=== PATIENT | female | born 1960 | race Caucasian/White ===

== ENCOUNTER → 2018-01-13 | Outpatient (CLI) | payer BC ==
[~2018-01-13] MED LIST: ALEVE PM CAPLE1 EACH PO; AMOCLA875 PO; CELE200 PO; CLOT10 SS; FLONASE ALLERG9.9 ML; Flagyl500 MG PO; LEVFLO500 PO; META800 PO; METF500 PO; METR500 PO; OMEG1CAP30; OMEP40CA12; OMEPRAZOLE MAGN20 MG PO; POTCIT5; Percocet 5-3251 EACH PO; STOOL SOFTENER; UBID10 PO; Zofran Odt8 MG SL
== END | disposition home or self-care (01) ==
LOC: LAB EV 10:26 → LAB SHORT 10:26
DX: F17.200 Nicotine dependence, unspecified, uncomplicated (principal)
CPT/HCPCS: 87070

== ENCOUNTER 2021-09-06 08:24 | Day surgery (SDC) | payer BC ==
[~2021-09-06] VITALS: Ht 157.5 cm; Wt 80.9 kg
[2021-09-06] MEDS ORDERED: ALEVE220 MG PO (09:26)
[2021-09-06] MEDS ORDERED: METAXALONE800 M1 PO (09:28)
[2021-09-06] MEDS ORDERED: ATOR10 PO (09:28)
[2021-09-06] MEDS ORDERED: ZOLOFT25 MG PO (09:29)
--- NOTE | 2021-09-06 09:38 | NUR ---
09/06/21 0938 Rowena Castro PT INTERNAL COVID TEST IS NEGATIVE
== END 2021-09-06 13:09 | disposition home or self-care (01) ==
LOC: ORSCSDS 08:24
PROVIDERS: Orthopaedic Surgery
PROC: 0LX80ZZ Transfer Left Hand Tendon, Open Approach (ICD-10-PCS; principal; 2021-09-06 10:00)
PROC: 0RQT0ZZ Repair Left Carpometacarpal Joint, Open Approach (ICD-10-PCS; principal; 2021-09-06 10:00)
DX: M18.12 Unilateral primary osteoarthritis of first carpometacarpal joint, left hand (principal); E78.5 Hyperlipidemia, unspecified; K21.9 Gastro-esophageal reflux disease without esophagitis; E11.9 Type 2 diabetes mellitus without complications; F17.210 Nicotine dependence, cigarettes, uncomplicated; M79.7 Fibromyalgia; Z79.84 Long term (current) use of oral hypoglycemic drugs; Z79.899 Other long term (current) drug therapy
CPT/HCPCS: 82947; 87426; A9270; C1713; C9803; J0690; J1100; J2250; J2405; J2704; J2795; J3010; J7120

== ENCOUNTER → 2022-07-03 | Outpatient (CLI) | payer BC ==
[~2022-07-03] MED LIST changes: +ALEVE220 MG PO; +ATOR10 PO; +METAXALONE800 M1 PO; +ZOLOFT25 MG PO
== END ==
LOC: LAB 08:10 → LAB SHORT 08:10 → PLD 08:10
DX: L60.2 Onychogryphosis (principal); B35.1 Tinea unguium
CPT/HCPCS: 88305; 88312

== ENCOUNTER 2024-02-27 10:42 | Emergency (ER) | payer BC ==
[~2024-02-27] VITALS: Ht 157.5 cm; Wt 76.2 kg
[2024-02-27 11:36] LABS: BASOPHILS ABSOLUTE AUTO 0.07 K/mm3 (0.00-0.23); BASOPHILS PERCENT AUTO 1 % (0-2); EOSINOPHILS ABSOLUTE AUTO 0.16 K/mm3 (0.00-0.68); EOSINOPHILS PERCENT AUTO 2 % (0-6); Hematocrit 45.7 % (33.0-51.0); Hemoglobin 15.4 g/dL (11.5-16.0); IMMATURE GRAN ABSOLUTE AUTO 0.04 K/mm3 (0.00-0.10); IMMATURE GRAN PERCENT AUTO 0 % (0-1); LYMPHOCYTES ABSOLUTE AUTO 3.58 K/mm3 (0.84-5.20); LYMPHOCYTES PERCENT AUTO 39 % (21-46); MONOCYTES ABSOLUTE AUTO 0.66 K/mm3 (0.16-1.47); MONOCYTES PERCENT AUTO 7 % (4-13); Mean Corpuscular HGB 30.8 pg (26.0-34.0); Mean Corpuscular HGB Conc 33.7 g/dL (31.5-36.5); Mean Corpuscular Volume 91 fL (80-100); Mean Platelet Volume 9.9 fL (9.1-12.4); NEUTROPHILS ABSOLUTE AUTO 4.69 K/mm3 (1.96-9.15); NEUTROPHILS PERCENT AUTO 51 % (41-73); Platelet Count 286 K/mm3 (150-400); RDW Coefficient Variation 14.3 % (11.7-14.2); RDW Standard Deviation 48.1 fL (35.1-46.3)
[2024-02-27 11:57] LABS: Albumin, Blood 3.8 g/dL (3.4-5.0); Albumin/Globulin Ratio 1.1 (0.8-1.8); Bilirubin, Total 0.5 mg/dL (0.1-1.0); Calcium, Blood 9.2 mg/dL (8.5-10.1); Creatinine, Blood 0.58 mg/dL (0.40-1.00); Globulin, Blood 3.4 g/dL (2.2-4.0); Potassium, Blood 3.7 mmol/L (3.5-5.5); Total Protein, Blood 7.2 g/dL (6.4-8.2)
[2024-02-27] MEDS ORDERED: Ketorolac Tromethamine 30mg Vial IV ONE (13:30)
[2024-02-27 13:31] LABS: Source, Urine Clean Catch
[2024-02-27 14:24] VITALS: BP 136/89
[2024-02-27 14:28] LABS: Bilirubin, Urine Neg (Neg); Blood, Urine Neg (Neg); Color, Urine Yellow (P-Yellow); Glucose Qualitative, Urine 4+ (Neg); Ketones, Urine Neg (Neg); Leukocyte Esterase, Urine 1+ (Neg); Nitrite, Urine Neg (Neg); Protein, Urine Neg (Neg); Urobilinogen, Urine NORM (Normal)
[2024-02-27 15:07] LABS: Appearance, Urine Hazy (Clear)
[2024-02-27 15:08] LABS: Bacteria Mod /hpf; Mucus Light (0-Heavy); Red Blood Cells, Urine 0-2 /hpf (0-2); Squamous Epithelial Cells Rare /hpf (Few); Transitional Epithelial Cells Rare /hpf (0-Rare)
== END 2024-02-27 15:10 | disposition left against medical advice (07) ==
LOC: ER 10:42
PROVIDERS: Physician Assistant
DX: R10.11 Right upper quadrant pain (principal); Z53.29 Procedure and treatment not carried out because of patient's decision for other reasons; K21.9 Gastro-esophageal reflux disease without esophagitis; E11.9 Type 2 diabetes mellitus without complications; F17.210 Nicotine dependence, cigarettes, uncomplicated; Z88.5 Allergy status to narcotic agent; Z88.8 Allergy status to other drugs, medicaments and biological substances; Z79.899 Other long term (current) drug therapy; Z79.84 Long term (current) use of oral hypoglycemic drugs
CPT/HCPCS: 76705; 80053; 81001; 83690; 85025; 87086; 96374; 99283-25; J1885

== ENCOUNTER → 2024-03-25 | Outpatient (CLI) | payer BC ==
[2024-03-25 13:25] LABS: Source, Urine Voided
[2024-03-25 15:26] LABS: Bacteria Rare /hpf; Red Blood Cells, Urine Not Seen /hpf (0-2); Squamous Epithelial Cells Rare /hpf (Few); White Blood Cells, Urine 0-2 /hpf (0-5)
== END ==
LOC: LAB 13:22 → LAB SHORT 13:22
PROVIDERS: Family Medicine
DX: R10.9 Unspecified abdominal pain (principal)
CPT/HCPCS: 81015; 87086

== ENCOUNTER 2024-04-28 01:24 | Observation (INO) | payer BC ==
[~2024-04-28] VITALS: Ht 157.5 cm; Wt 78.0 kg
[2024-04-28] VITALS (17 sets, daily range): BP systolic 96–133; BP diastolic 60–86
[2024-04-28] MEDS ORDERED: Ondansetron HCl 2 MG / ML 2ML Vial ONE ×2 (01:33→02:34)
[2024-04-28] MEDS ORDERED: Ondansetron HCl 2 MG / ML 2ML Vial IV ONE ×2 (01:35→02:25)
[2024-04-28 01:40] LABS: Calcium, Ionized (POC) 1.07 mmol/L (1.10-1.46); Chloride (POC) 108 mmol/L (98-108); Creatinine (POC) 0.7 mg/dL (0.6-1.0); Glucose (ISTAT POC) 167 mg/dL (70-99); Hemoglobin (POC) 14.6 g/dL (12.0-16.0); Potassium (POC) 3.7 mmol/L (3.5-5.5); Sodium (POC) 137 mmol/L (135-148); Total CO2 (POC) 18 mmol/L (21-32)
[2024-04-28] MEDS ORDERED: LOSARTAN POTASS25 M2 PO (01:41)
[2024-04-28] MEDS ORDERED: Bisoprolol Fumar5 MG PO (01:41)
[2024-04-28] MEDS ORDERED: NS 1,000 ML IV ONE (01:42)
[2024-04-28] MEDS ORDERED: ASPI81CH PO (01:42)
[2024-04-28] MEDS ORDERED: Verapamil HCL 2.5 MG/ML 2ML Injection ONE (01:45)
[2024-04-28] MEDS ORDERED: Heparin Sodium 1000 Units/ML 10ML MDV ONE ×2 (01:45→01:49)
[2024-04-28] MEDS ORDERED: NS 250 ML IV ONE (01:45)
[2024-04-28] MEDS ORDERED: NS 2,000 ML IV ONE (01:45)
[2024-04-28] MEDS ORDERED: Nitroglycerin 2 MG/20 ML BTL ONE (01:45)
[2024-04-28] MEDS ORDERED: FentaNYL Citrate 50 MCG/ML 2 ML Injection ONE (01:49)
[2024-04-28] MEDS ORDERED: Midazolam HCl 1MG / ML 2ML Vial ONE (01:49)
[2024-04-28] MEDS ORDERED: Atropine Sulfate 0.1 MG/ML 10ML SYR ONE (01:50)
[2024-04-28] MEDS ORDERED: NS 1,000 ML IV SCH ×2 (01:50→03:00)
[2024-04-28] MEDS ORDERED: NiCARdipine HCL 1,000 MCG/5 ML SYR ONE (01:51)
[2024-04-28 01:58] LABS: International Normalized Ratio 0.96; Prothrombin Time Results 10.3 Sec (9.7-11.5)
[2024-04-28 02:03] LABS: BASOPHILS ABSOLUTE AUTO 0.12 K/mm3 (0.00-0.23); BASOPHILS PERCENT AUTO 1 % (0-2); EOSINOPHILS ABSOLUTE AUTO 0.38 K/mm3 (0.00-0.68); EOSINOPHILS PERCENT AUTO 2 % (0-6); Hematocrit 43.9 % (33.0-51.0); Hemoglobin 14.4 g/dL (11.5-16.0); Mean Corpuscular HGB 30.5 pg (26.0-34.0); Mean Corpuscular HGB Conc 32.8 g/dL (31.5-36.5); Mean Corpuscular Volume 93 fL (80-100); Mean Platelet Volume 9.8 fL (9.1-12.4); Platelet Count 329 K/mm3 (150-400); RDW Coefficient Variation 14.7 % (11.7-14.2); RDW Standard Deviation 50.9 fL (35.1-46.3); Red Blood Cell Count 4.72 M/mm3 (3.80-5.20); White Blood Cell Count 16.77 K/mm3 (4.00-11.30)
[2024-04-28 02:05] LABS: Albumin, Blood 3.4 g/dL (3.4-5.0); Albumin/Globulin Ratio 0.9 (0.8-1.8); Bilirubin, Total 0.4 mg/dL (0.1-1.0); Bun/Creatinine Ratio 17.7 (12.0-20.0); Calcium, Blood 8.5 mg/dL (8.5-10.1); Creatinine, Blood 0.62 mg/dL (0.40-1.00); Globulin, Blood 3.6 g/dL (2.2-4.0)
[2024-04-28] MEDS ORDERED: Nitroglycerin 0.4 MG SUBL SL PRN (02:05)
[2024-04-28 02:07] LABS: IMMATURE GRAN ABSOLUTE AUTO 0.14 K/mm3 (0.00-0.10); IMMATURE GRAN PERCENT AUTO 1 % (0-1); LYMPHOCYTES ABSOLUTE AUTO 8.13 K/mm3 (0.84-5.20); LYMPHOCYTES PERCENT AUTO 49 % (21-46); MONOCYTES ABSOLUTE AUTO 1.23 K/mm3 (0.16-1.47); MONOCYTES PERCENT AUTO 7 % (4-13); NEUTROPHILS ABSOLUTE AUTO 6.77 K/mm3 (1.96-9.15); NEUTROPHILS PERCENT AUTO 40 % (41-73)
[2024-04-28] MEDS ORDERED: Ondansetron HCl 2 MG / ML 2ML Vial IV PRN (03:00)
[2024-04-28] MEDS ORDERED: Acetaminophen 325 MG TABLET PO PRN (03:00)
[2024-04-28] MEDS ORDERED: METF500 PO (03:19)
--- NOTE | 2024-04-28 05:00 | NUR ---
ARRIVAL TO ICU: RECEIVED REPORT FROM BARB RN AT 0223. PT ARRIVED TO ICU BED 08 VIA BED FROM HEALTHCARE INSURANCE SALES AGENT AT 0250. PT ALERT AND ORIENTED X4. ANSWERS QUESTIONS AND FOLLOWS COMMANDS. PT ON 2L NC UPON ARRIVAL WITH SPO2 >90%. TRIALED PT WITHOUT OXYGEN AND SHE DESATTED TO 84%. DENIES SOB. LUNGS CLEAR IN UPPER LOBES AND DIM IN THE BASES. 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 SBP 120'S. DENIES CHEST PAIN OR PRESSURE UPON ARRIVAL. TR BAND TO RIGHT RADIAL, NO SIGNS OF HEMATOMA OR BLEEDING NOTED. ARMBOARD IN PLACE. PT HAS GOOD PULSES NOTED WITH GOOD SPO2 WAVEFORM. PT AFEBRILE. PIV TO RAC AND LW, INTACT AND PATENT. NS AT 125 ML/HR. TOLERATING ICE CHIPS. PUPILS EQUAL AND REACTIVE. PT AT THE BEDSIDE, UPDATED TO PLAN OF CARE. PT HAS NOT YET VOIDED OR HAD A BM SINCE ARRIVAL TO ICU. BED LOW AND LOCKED, CALL LIGHT IN REACH.
[2024-04-28 05:01] LABS: Hematocrit 40.8 % (33.0-51.0); Hemoglobin 13.5 g/dL (11.5-16.0); Mean Corpuscular HGB 30.5 pg (26.0-34.0); Mean Corpuscular HGB Conc 33.1 g/dL (31.5-36.5); Mean Corpuscular Volume 92 fL (80-100); Mean Platelet Volume 9.8 fL (9.1-12.4); Platelet Count 265 K/mm3 (150-400); RDW Coefficient Variation 14.7 % (11.7-14.2); RDW Standard Deviation 50.4 fL (35.1-46.3); Red Blood Cell Count 4.43 M/mm3 (3.80-5.20); White Blood Cell Count 16.22 K/mm3 (4.00-11.30)
[2024-04-28 05:23] LABS: Anion Gap 14 mmol/L (3-11); Blood Urea Nitrogen 10 mg/dL (8-24); Bun/Creatinine Ratio 15.6 (12.0-20.0); CHOL/HDL RATIO 7.9; CO2, Blood 20 mmol/L (21-32); Calcium, Blood 8.3 mg/dL (8.5-10.1); Chloride, Blood 111 mmol/L (98-108); Cholesterol 275 mg/dL (50-200); Creatinine, Blood 0.64 mg/dL (0.40-1.00); Glomerular Filtration Rate 99 (60-); Glucose, Blood 187 mg/dL (70-99); HDL Cholesterol 35 mg/dL (>39); LDL/HDL RATIO 5.5; Low Density Lipoprotein Chol 193 mg/dL (0-110); Potassium, Blood 3.8 mmol/L (3.5-5.5); Sodium, Blood 141 mmol/L (136-145); Triglycerides 237 mg/dL (30-160); Very Low Density Lipoprot Chol 47 mg/dL (6-32)
--- NOTE | 2024-04-28 06:59 | NUR ---
UPDATE: TR BAND DEFLATED AT 0640. NO NEW SIGNS OF HEMATOMA, PAIN OR BLEEDING NOTED. TR BAND STILL IN PLACE, ARMBOARD IN PLACE. STRONG RADIAL PULSE NOTED, CAP REFILL LESS THAN 3 SECONDS AND PT HAS GOOD SENSATION IN FINGERS.
[2024-04-28] MEDS ORDERED: Insulin Human Lispro 100 Units/ML 3ML Syringe SC SCH (07:30)
[2024-04-28] MEDS ORDERED: MetFORMIN HCl 500 mg PO SCH (08:00)
[2024-04-28] MEDS ORDERED: Heparin Sodium,Porcine 5,000 UNIT/0.5 ML SDV SC SCH (09:00)
[2024-04-28] MEDS ORDERED: Ezetimibe 10 MG Tab PO SCH (09:00)
[2024-04-28] MEDS ORDERED: Ticagrelor 90 MG TABLET PO SCH (09:00)
[2024-04-28] MEDS ORDERED: Aspirin 81 MG TabEC PO SCH (09:00)
[2024-04-28] MEDS ORDERED: Varenicline Tartrate 1 MG Tablet PO SCH (09:00)
[2024-04-28] MEDS ORDERED: Losartan Potassium 25 MG Tab PO SCH ×2 (09:00→21:00)
[2024-04-28] MEDS ORDERED: Metoprolol Succinate 50 MG TABCR PO SCH (09:00)
[2024-04-28] MEDS ORDERED: Heparin Sodium,Porcine 5,000 UNIT/0.5 ML SDV SC ONE (10:03)
[2024-04-28] MEDS ORDERED: Ticagrelor 90 MG TABLET PO ONE (10:03)
--- NOTE | 2024-04-28 17:59 | NUR ---
DAY SHIFT SUMMARY PT HAS BEEN ALERT AND ORIENTED THIS SHIFT COMMUNICATING APPROPRIATELY W STAFF. PT HAS DENIED ANY CP OR PRESSURE THIS SHIFT BUT DID REPORT SOME MILD REFLUX THIS AFTERNOON WHICH SHE STATED IS NOT NEW TO HER SHE HAS A HIATAL HERNIA W FREQUENT ACID REFLUX. PT'S MONITOR SHOWING SR 60'S-70'S W OCCASIONAL PVC. BP WNL AND STABLE. PT'S SPO2 >92% ON RM AIR. PT MADE PCU STATUS THIS SHIFT AND GIVEN PORTABLE TECHNICIAN PLANT AND MAINTENANCE SO SHE CAN AMBULATE IN THE RM. PT TOLERATING PO INTAKE WELL. PT'S R RADIAL SITE HAS HAD NO BLEEDING, SWELLING OR PAIN THIS SHIFT. IMMOBILIZER IN PLACE. WILL REPORT TO ONCOMING RN.
--- NOTE | 2024-04-28 20:24 | NUR ---
Assumed care of pt at 1900. Pt resting on bed playing on her phone. AOX4. Pleasant and cooperative w/ care. PT radial site is dressed w/ tegaderm- clean, dry, intact w/ no oozing or hematoma. PT denies cp or sob. Pt on ra, o2 sats are 94%. Lungs clear. Pt on tele, nsr rate of 70s observed. BP stable. Pt had 5 beat run of vtach that was not sustained, strip saved to chart. Pt using restroom in room independently. Pt ate small amount of her dinner. Call light w/ in reach. Plan of care ongoing.
[2024-04-29] VITALS: BP 119/60
--- NOTE | 2024-04-29 01:23 | NUR ---
TRANSFER SUMMARY PT TO PCU ROOM 2, AMBULATED W/ THIS RN WITH STEADY GAIT. BEDSIDE REPORT GIVEN TO ELVA SIMS.
[2024-04-29 01:24] VITALS: BP 136/74
--- NOTE | 2024-04-29 01:30 | NUR ---
ARRIVAL TO PCU NOTE PT WALKED WITH SOFTWARE PROGRAMMER TAJ BLAIR INDEPENDENTLY FROM ICU TO PCU 2 AT 0117. ARRIVED A/Ox4 AND COOPERATIVE WITH CARE. ANSWERS QUESTIONS APPROPRIATLEY AND ABLE TO MAKE HER NEEDS KNOWN. DENIES CP, PRESSURE OR DIZZINESS. SBP STABLE RANGING 130'S. MAINTAINTING SPO2 >94% ON RA. DENIES SOB OR DYSPNEA. BS PRESENT IN ALL QUADRANTS WITH NO REPORTS OF NAUSEA OR ABD PAIN. RIGHT RADIAL ACCESS SITE FROM ANGIO ON 04/28 WNL. DENIES ANY SITE TENDERNESS, HAND TINGLING, OR SENSATION LOSS. RADIAL PULSE PRESENT AND HAND WARM TO THE TOUCH WITH GOOD CAP. REFILL. 1xPIV IN LFA THAT FLUSHES WELL. REVIEWED SOFTWARE PROGRAMMER SHIFT ASSESSMENT AND AGREE WITH THEIR FINDINGS. RAH CEBALLOS AT THIS TIME.
[2024-04-29 03:38] LABS: Hematocrit 40.7 % (33.0-51.0); Hemoglobin 13.5 g/dL (11.5-16.0); Mean Corpuscular HGB 30.5 pg (26.0-34.0); Mean Corpuscular HGB Conc 33.2 g/dL (31.5-36.5); Mean Corpuscular Volume 92 fL (80-100); Platelet Count 272 K/mm3 (150-400); RDW Coefficient Variation 14.6 % (11.7-14.2); RDW Standard Deviation 49.6 fL (35.1-46.3); Red Blood Cell Count 4.42 M/mm3 (3.80-5.20)
[2024-04-29 03:58] LABS: Bun/Creatinine Ratio 12.6 (12.0-20.0); Creatinine, Blood 0.64 mg/dL (0.40-1.00)
[2024-04-29 04:00] VITALS: BP 117/72
[2024-04-29] MEDS ORDERED: Pantoprazole Sodium 20 MG Tab PO SCH (06:00)
--- NOTE | 2024-04-29 06:07 | NUR ---
SHIFT SUMMARY PT ARRIVED TO PCU 0117, PT AMBULATED FROM ICU TO PCU. VSS; SBP 1 TEENS, HRR SINUS IN 70'S, AFEBRILE, SPO2 WNL ON RA. NO ACUTE EVENTS DURING THE SHIFT. PT AMBULATING TO RESTROOM INDEPENDENTLY. R RADIAL SITE WNL, FULLY RECOVERED WITH ARMBOARD IN PLACE. NO CHANGES TO SITE. THIS RN REVIEWED PREVIOUS RN'S ASSESSMENT AND NO CHANGES TO ASSESSMENT. PT RESTED WELL. EXPRESSES DESIRE TO "GET HOME" AND BACK TO HER LIFE AND FAMILY. CALL LIGHT IN REACH, ABLE TO MAKE NEEDS KNOWN.
[2024-04-29 07:09] VITALS: BP 109/59
[2024-04-29] MEDS ORDERED: METO100ER PO (08:14)
[2024-04-29] MEDS ORDERED: BRILINTA90 M1 PO (08:15)
[2024-04-29] MEDS ORDERED: EZET10 PO (08:15)
[2024-04-29] MEDS ORDERED: PANT20 PO (08:15)
--- NOTE | 2024-04-29 09:53 | NUR ---
AM NOTE/DISCHARGE: PATIENT ALERT AND ORIENTED, DENIES NUMBNESS/TINGLING. UP IND IN ROOM. ON ROOM AIR, LUNGS SOUNDING CLEAR. TELE SHOWING SR WITH HR 60'S. DENIES CHEST PAIN/PRESSURE/PALPITATIONS. PPP. RIGHT RADIAL SITE WNL. SITE C/D/I. ARM BOARD IN PLACE. THIS RN REVIEWED RIGHT RADIAL EDUCATION AND PRECAUTIONS. UP IND USING BATHROOM. DENIES ABDOMINAL PAIN/NAUSEA. BOWEL TONES PRESENT IN ALL 4 QUADRANTS. DISCHARGE INSTRUCTIONS REVIEWED BY THIS RN: MEDICATIONS TO STOP, NEW MEDICATIONS, FOLLOW UP APPOINTMENTS, RADIAL PRECAUTIONS AND SIGNS AND SYMPTOMS OF WHEN TO RETURN. IV REMOVED WNL. IN TO PICK PATIENT UP. PATIENT LEFT UNIT WITH ALL PERSONAL BELONGINGS.
== END 2024-04-29 09:49 | disposition home or self-care (01) ==
LOC: ER 01:24 → ICUE 01:25 → ER 01:30 → ICUE 01:30 → PCU 04-29 01:16
PROVIDERS: Student in an Organized Health Care Education/Training Program; ADMIT Internal Medicine Cardiovascular Disease
DX: I21.19 ST elevation (STEMI) myocardial infarction involving other coronary artery of inferior wall (principal); I10 Essential (primary) hypertension; K21.9 Gastro-esophageal reflux disease without esophagitis; E78.5 Hyperlipidemia, unspecified; E11.9 Type 2 diabetes mellitus without complications; F17.210 Nicotine dependence, cigarettes, uncomplicated; Z79.899 Other long term (current) drug therapy; Z88.5 Allergy status to narcotic agent; Z88.8 Allergy status to other drugs, medicaments and biological substances
CPT/HCPCS: 36415; 71045; 76937; 80047; 80048; 80053; 80061; 82947; 83036; 84484; 85014; 85025; 85027; 85347; 85610; 92941; 93005; 93010; 93306; 93454; 96374; 99152; 99153; 99285-25; A9270; C1725; C1769; C1874; C1887; C1894; C9600; J0461; J1644; J2250; J2405; J2470; J3010; J7030; J7050; Q9967

== ENCOUNTER → 2024-12-01 | Outpatient (CLI) | payer BC ==
[~2024-12-01] MED LIST changes: +ASPI81CH PO; +BRILINTA90 M1 PO; +Bisoprolol Fumar5 MG PO; +EZET10 PO; +LOSARTAN POTASS25 M2 PO; +METO100ER PO; +PANT20 PO
== END | disposition home or self-care (01) ==
LOC: LAB SHORT 07:37 → LAB 07:37
DX: B35.1 Tinea unguium (principal); L60.2 Onychogryphosis
CPT/HCPCS: 88305; 88312